=== PATIENT | male | born 1945 | race Caucasian/White ===

== ENCOUNTER 2022-01-21 18:39 | Emergency (ER) | payer MEDICARE, BC ==
[2022-01-21] MEDS ORDERED: diphenhydrAMINE 25 MG Cap PO ONE (19:06)
[2022-01-21] MEDS ORDERED: methylPREDNISolone Sodium Succinate 125 MG/2 ML SDV IM ONE (19:06)
== END 2022-01-21 20:18 | disposition home or self-care (01) ==
LOC: JP.ED 18:39
DX: T63.441A Toxic effect of venom of bees, accidental (unintentional), initial encounter (principal); Z91.030 Bee allergy status; Z88.0 Allergy status to penicillin; Z88.8 Allergy status to other drugs, medicaments and biological substances; Z79.82 Long term (current) use of aspirin; Z79.899 Other long term (current) drug therapy; Z79.84 Long term (current) use of oral hypoglycemic drugs
CPT/HCPCS: 96372; 99283; A9270; J2930